=== PATIENT | female | born 1965 | race Two or more races ===

== ENCOUNTER 2018-06-21 11:53 | Emergency (ER) | payer MEDICAID, OTHER ==
[~2018-06-21] VITALS: Ht 177.8 cm; Wt 55.8 kg
[2018-06-21 12:07] VITALS: BP 119/79
== END 2018-06-21 16:16 | disposition left against medical advice (07) ==
LOC: ER 11:53
DX: M79.604 Pain in right leg (principal); Z53.21 Procedure and treatment not carried out due to patient leaving prior to being seen by health care provider